=== PATIENT | female | born 1955 | race Caucasian/White ===

== ENCOUNTER 2016-08-31 10:41 | Emergency (ER) | payer MEDICARE, OTHER ==
--- NOTE | 2016-08-31 12:29 | ER Document Report ---
ED Fall - General Chief Complaint: Fall Injury Stated Complaint: FALL/LEFT LEG AND FOOT PAIN Time Seen by Provider: 08/31/16 11:39 Mode of Arrival: Wheelchair Information source: Patient Notes: 61-year-old female presents to ED for pain to her left foot ankle and leg. [place] cement stairs. [place] told [place] that it was just bruising and sent her home she has not been seen by a primary doctor and has not had any x-ray. Her leg ankle and foot are swollen and ecchymotic. TRAVEL OUTSIDE OF THE [place] IN LAST 30 DAYS: No - HPI Occurred: Other - 6 Days ago Where: Outdoors, Public place Context: Slipped - And fell downstairs Associated symptoms: None, Difficulty walking Location of injury/pain: Ankle, Foot Quality of pain: Achy, Dull, Throbbing Severity: Moderate Pain Level: 4 - Related data Allergies/Adverse Reactions: Penicillins Allergy (Severe, Verified 08/31/16 10:47) codeine [Codeine] Allergy (Intermediate, Verified 08/31/16 10:47) oxycodone [Oxycodone] Allergy (Intermediate, Verified 08/31/16 10:47) Urticaria Sulfa (Sulfonamide Antibiotics) Allergy (Intermediate, Verified 08/31/16 10:47) Past Medical History - General Information source: Patient - Social History Smoking Status: Current Every Day Smoker Cigarette use (# per day): Yes - She is reduced down to a pack and a half a day Chew tobacco use (# tins/day): No Smoking Education Provided: Yes - Less than 2 minutes Frequency of alcohol use: Occasional Drug Abuse: None Lives with: Alone Family History: Arthritis, DM, Hyperlipidemia, Hypertension, Malignancy Patient has suicidal ideation: No Patient has homicidal ideation: No - Past Medical History Cardiac Medical History: Reports: None Pulmonary Medical History: Reports: Hx Bronchitis - chronic Neurological Medical History: Reports: Hx Migraine Endocrine Medical History: Reports: Hx Hypothyroidism Renal/ Medical History: Reports: None Malignancy Medical History: Reports: Hx Cervical Cancer, Hx Ovarian Cancer, Hx Skin Cancer GI Medical History: Reports: Hx Cirrhosis - With portal hypertension and ascites , Hx Gastroesophageal Reflux Disease, Hx Colonoscopy, Hx Endoscopy Musculoskeltal Medical History: Reports Hx Arthritis, Reports Hx Musculoskeletal Deformity, Reports Hx Musculoskeletal Trauma Skin Medical History: Reports None Traumatic Medical History: Reports: Hx Fractures Infectious Medical History: Reports: None Past Surgical History: Reports: Hx Adenoidectomy, Hx Bowel Surgery, Hx Cholecystectomy, Hx Genitourinary Surgery, Hx Herniorrhaphy, Hx Hysterectomy, Hx Kidney (Renal Surgery) - biopsy, Hx Orthopedic Surgery - left knee surgery x2 , Hx Thyroid Surgery, Hx Tonsillectomy, Hx Umbilical Hernia - Immunizations Immunizations up to date: Yes Hx Diphtheria, Pertussis, Tetanus Vaccination: Yes Hx Pneumococcal Vaccination: 04/21/10 Review of Systems - Review of Systems Constitutional: No symptoms reported EENT: No symptoms reported Cardiovascular: No symptoms reported Respiratory: No symptoms reported Gastrointestinal: No symptoms reported Genitourinary: No symptoms reported Female Genitourinary: No symptoms reported Musculoskeletal: Leg swelling, Ankle swelling Skin: No symptoms reported Hematologic/Lymphatic: No symptoms reported Neurological/Psychological: No symptoms reported Physical Exam - Vital signs Vitals: Temp Pulse Resp BP Pulse Ox 98.2 F 65 16 125/59 L 98 08/31/16 10:47 08/31/16 10:47 08/31/16 10:47 08/31/16 10:47 08/31/16 10:47 Interpretation: Normal - General General appearance: Appears well, Alert - HEENT Head: Normocephalic, Atraumatic Eyes: Normal Pupils: PERRL - Respiratory Respiratory status: No respiratory distress Chest status: Nontender Breath sounds: Normal Chest palpation: Normal - Cardiovascular Rhythm: Regular Heart sounds: Normal auscultation Murmur: No - Abdominal Inspection: Normal Distension: No distension Bowel sounds: Normal Tenderness: Nontender Organomegaly: No organomegaly - Back Back: Normal, Nontender - Extremities General upper extremity: Normal inspection, Nontender, Normal color, Normal ROM , Normal temperature General lower extremity: Normal color, Normal temperature. No: Misael's sign Calf: Tender, Ecchymosis, Unable to bear weight. No: Normal, Nontender, Abrasion, Deformity, Instability, Laceration, Other Ankle: Tender, Ecchymosis, Limited ROM. No: Normal, Nontender, Abrasion, Deformity, Edema, Instability, Laceration, Positive Whitt's test, Unable to bear weight, Other Foot: Tender, Edema, Ecchymosis. No: Normal, Nontender, Abrasion, Deformity, Instability, Laceration, Metatarsal compress. pain, Nail injury, Navicular tenderness, No evidence of FB, Puncture wound, Unable to bear weight, Tender 5th metatarsal, Other - Neurological Neuro grossly intact: Yes Cognition: Normal Orientation: AAOx4 [place] Coma Scale Eye Opening: Spontaneous [place] Coma Scale Verbal: Oriented [place] Coma Scale Motor: Obeys Commands [place] Coma Scale Total: 15 Speech: Normal Motor strength normal: LUE, RUE, LLE, RLE Sensory: Normal - Psychological Associated symptoms: Normal affect, Normal mood - Skin Skin Temperature: Warm Skin Moisture: Dry Skin Color: Normal Course - Re-evaluation Re-evalutation: 08/31/16 13:40 Discussed x-rays with patient and written report given to patient to follow-up with orthopedics and her primary doctor. Nothing acute showing on the x-ray. Patient instructed to use ice elevation ibuprofen - Vital Signs Vital signs: Temp Pulse Resp BP Pulse Ox 98.2 F 62 18 146/58 H 100 08/31/16 13:53 08/31/16 13:53 08/31/16 13:53 08/31/16 13:53 08/31/16 13:53 - Diagnostic Test Radiology reviewed: Image reviewed, Reports reviewed Discharge - Discharge Clinical Impression: Pain of left lower leg, Pain in left foot Pain in left ankle Qualifiers: Chronicity: acute Qualified Code(s): M25.572 - Pain in left ankle and joints of left foot Condition: Stable Disposition: HOME, SELF-CARE Additional Instructions: CONTUSION: Your injury has resulted in a contusion -- a crushing of the deep tissues. No injury to important structures was detected during the physician's exam. Contusions vary in the amount of pain they cause, and in the length of time required for healing. Typically, the area will become bruised, and will remain painful to touch for two or three weeks. However, most patients are back to working and playing within a few days. After the initial period of rest and cold-packs, your symptoms (together with the doctor's recommendations) will determine how rapidly you can get back to full activity. Usually this means "do what feels okay, but don't do things that hurt." If re-examination was recommended, it's important to follow up as instructed. Call the doctor or return any time if pain increases, if swelling becomes severe, if you develop numbness or weakness in an injured extremity, or if any other alarming symptoms occur. ICE & ELEVATION: Apply ice packs frequently against the painful area. Many different schedules are recommended, such as "20 minutes on, 20 minutes off" or "one hour ice, two hours rest." If you need to work, you may need to go longer between ice treatments. You should plan to have the area ice packed AT LEAST one- fourth of the time. The ice should be applied over the wrap, tape, or splint, or over a layer of cloth -- not directly against the skin. Some ice bags have a built-in cloth and can be put directly on the skin. Your injured part should be elevated as much as possible over the next 48 hours. Try to keep the injury above the level of the heart. Avoid use of the injured area. Elevation and rest will decrease the swelling. USE OF [id number] IBUPROFEN: Ibuprofen (Advil, Nuprin, Medipren, Motrin IB) is a medication for fever and pain control. In addition, it has anti- inflammatory effects which may be beneficial, especially in the treatment of injuries. It's best to take ibuprofen with food. Persons with ulcer disease or allergy to aspirin should notify their physician of this before taking ibuprofen. Ibuprofen can be given every four to six hours, for a total of four doses daily. Age Pain or fever dose Antiinflammatory dose 6-8 yr 200 mg (1 tab) 200 mg (1 tab) 9-11 yr 200 mg (1 tab) 200-400 mg (1-2 tab) 11-14 yr 200-400 mg (1-2 tab) 400 mg (2 tab) 15-adult 400 mg (2 tab) 600 mg (3 tab) ORAL NARCOTIC MEDICATION: You have been given a prescription for pain control. This medication is a narcotic. It's best taken with food, as nausea can result if taken on an empty stomach. Don't operate machinery or drive within six hours of taking this medication. Do not combine this medicine with alcohol, or with any medication which can cause sedation (such as cold tablets or sleeping pills) unless you get permission from the physician. Narcotics tend to cause constipation. If possible, drink plenty of fluids and eat a diet high in fiber and fruits. Please be aware that prescription narcotics also have the potential for abuse. People become addicted to these medications because of the general sense of wellbeing that they induce. This feeling along with a significant reduction in tension, anxiety, and aggression provides a stimulating seductive quality to these drugs. Once your pain is under control, we encourage you to discard your unused narcotics. FOLLOW-UP CARE: If you have been referred to a physician for follow-up care, call the physician s office for an appointment as you were instructed or within the next two days. If you experience worsening or a significant change in your symptoms, notify the physician immediately or return to the Emergency Department at any time for re-evaluation. Prescriptions: Hydrocodone/Acetaminophen [King[place] 5-325 mg Tablet] 1 tab PO Q6HP PRN #14 tablet PRN Reason: Forms: Smoking Cessation Education Referrals: ARCHANA CEBALLOS MD [Primary Care Provider] - Follow up as needed
--- NOTE | 2016-08-31 13:03 | RADIOLOGY REPORT (SQ) ---
EXAM DESCRIPTION: FOOT LEFT COMPLETE COMPLETED DATE/TIME: 08/31/2016 12:37 pm REASON FOR STUDY: fall injury pain bruising and swelling COMPARISON: 06/25/2015. NUMBER OF VIEWS: Three views. TECHNIQUE: AP, lateral and oblique radiographic images acquired of the left foot. LIMITATIONS: None. FINDINGS: MINERALIZATION: Osteopenia. BONES: No acute fracture or dislocation. Small heel spur. No worrisome bone lesions. JOINTS: No effusions. SOFT TISSUES: No soft tissue swelling. No foreign body. OTHER: No other significant finding. IMPRESSION: OSTEOPENIA. NO ACUTE FINDINGS. TECHNICAL DOCUMENTATION: JOB ID: [id number] [employer]- All Rights Reserved
--- NOTE | 2016-08-31 13:04 | RADIOLOGY REPORT (SQ) ---
EXAM DESCRIPTION: TIBIA FIBULA LEFT COMPLETED DATE/TIME: 08/31/2016 12:37 pm REASON FOR STUDY: fall injury pain bruising and swelling COMPARISON: None. NUMBER OF VIEWS: Two views. TECHNIQUE: Two radiographic images acquired of the left tibia and fibula to include the knee and ank le in at least one projection. LIMITATIONS: None. FINDINGS: MINERALIZATION: Patchy demineralization. BONES: No acute fracture or dislocation. No worrisome bone lesions. SOFT TISSUES: No obvious swelling or foreign body. OTHER: No other significant finding. IMPRESSION: PATCHY DEMINERALIZATION. NO ACUTE FINDINGS. TECHNICAL DOCUMENTATION: JOB ID: [id number] [employer]- All Rights Reserved
[2016-08-31 13:56] VITALS: BP 146/58
== END 2016-08-31 13:50 | disposition home or self-care (01) ==
LOC: ER 10:41
DX: M79.605 Pain in left leg (principal); M79.672 Pain in left foot; W10.9XXA Fall (on) (from) unspecified stairs and steps, initial encounter; F17.210 Nicotine dependence, cigarettes, uncomplicated; Z88.0 Allergy status to penicillin; Z88.6 Allergy status to analgesic agent; Z88.2 Allergy status to sulfonamides; Z85.41 Personal history of malignant neoplasm of cervix uteri; Z85.43 Personal history of malignant neoplasm of ovary; Z85.828 Personal history of other malignant neoplasm of skin; Z90.49 Acquired absence of other specified parts of digestive tract; Z90.710 Acquired absence of both cervix and uterus
CPT/HCPCS: 99283

== ENCOUNTER 2016-10-06 12:09 | Emergency (ER) | payer MEDICARE, OTHER ==
--- NOTE | 2016-10-06 12:53 | ER Document Report ---
ED Medical Screen (RME) - General Chief Complaint: Leg Swelling Stated Complaint: FEET SWELLING Time Seen by Provider: 10/06/16 12:50 Mode of Arrival: Ambulatory Information source: Patient Notes: 61 yo female with alcoholic cirrhosis, portal hypertension, anemia, hypokalemia , thrombocytopenia, esophogeal varices, venous insufficiency c/o increased swelling to both legs. No shortness of breath. Hx t12 fx untreated. selfmedicating with alcohol for the pain. Lungs diminished in bases, no rales. TRAVEL OUTSIDE OF THE [place] IN LAST 30 DAYS: No - Related Data Allergies/Adverse Reactions: Penicillins Allergy (Severe, Verified 10/06/16 12:38) codeine [Codeine] Allergy (Intermediate, Verified 10/06/16 12:38) oxycodone [Oxycodone] Allergy (Intermediate, Verified 10/06/16 12:38) Urticaria Sulfa (Sulfonamide Antibiotics) Allergy (Intermediate, Verified 10/06/16 12:38) Past Medical History Pulmonary Medical History: Reports: Hx Bronchitis - chronic Neurological Medical History: Reports: Hx Migraine Endocrine Medical History: Reports: Hx Hypothyroidism Renal/ Medical History: Denies: Hx Peritoneal Dialysis Malignancy Medical History: Reports: Hx Cervical Cancer, Hx Ovarian Cancer, Hx Skin Cancer GI Medical History: Reports: Hx Cirrhosis - With portal hypertension and ascites , Hx Gastroesophageal Reflux Disease, Hx Colonoscopy, Hx Endoscopy Musculoskeltal Medical History: Reports Hx Arthritis, Reports Hx Musculoskeletal Deformity, Reports Hx Musculoskeletal Trauma Traumatic Medical History: Reports: Hx Fractures Past Surgical History: Reports: Hx Abdominal Surgery - hernia repair, Hx Adenoidectomy, Hx Bowel Surgery, Hx Cholecystectomy, Hx Genitourinary Surgery, Hx Herniorrhaphy, Hx Hysterectomy, Hx Kidney (Renal Surgery) - biopsy, Hx Orthopedic Surgery - left knee surgery x2, Hx Thyroid Surgery, Hx Tonsillectomy , Hx Umbilical Hernia - Immunizations Immunizations up to date: Yes Hx Diphtheria, Pertussis, Tetanus Vaccination: Yes Physical Exam - Vital signs Vitals: Temp Pulse Resp BP Pulse Ox 97.8 F 95 14 103/57 L 98 10/06/16 12:17 10/06/16 12:17 10/06/16 12:17 10/06/16 12:17 10/06/16 12:17 Course - Vital Signs Vital signs: Temp Pulse Resp BP Pulse Ox 97.8 F 95 14 103/57 L 98 10/06/16 12:17 10/06/16 12:17 10/06/16 12:17 10/06/16 12:17 10/06/16 12:17
[2016-10-06 13:25] LABS: ABSOLUTE BASOPHILS # (AUTO) 0.2 10^3/uL (0.0-0.2); ABSOLUTE EOSINOPHILS # (AUTO) 0.2 10^3/uL (0.0-0.6); ABSOLUTE LYMPHOCYTES (AUTO) 2.2 10^3/uL (0.5-4.7); ABSOLUTE MONOCYTES (AUTO) 1.4 10^3/uL (0.1-1.4); ABSOLUTE NEUT (AUTO) 4.6 10^3/uL (1.7-8.2); BASOPHILS % (AUTO) 2.2 % (0-2); EOSINOPHILS % (AUTO) 2.4 % (0-6); HEMATOCRIT 31.1 % (36.0-47.0); HEMOGLOBIN 10.3 g/dL (12.0-15.5); HGB HCT DIFFERENCE -0.2; LYMPHOCYTES % (AUTO) 25.9 % (13-45); MEAN CORPUSCULAR HEMOGLOBIN 30.6 pg (27.0-33.4); MEAN CORPUSCULAR HGB CONC 33.2 g/dL (32.0-36.0); MEAN CORPUSCULAR VOLUME 92 fl (80-97); MONOCYTES % (AUTO) 16.2 % (3-13); RED BLOOD COUNT 3.37 10^6/uL (3.72-5.28); RED CELL DISTRIBUTION WIDTH 15.7 % (11.5-14.0); SEGMENTED NEUTROPHILS % (AUTO) 53.3 % (42-78); WHITE BLOOD COUNT 8.6 10^3/uL (4.0-10.5)
[2016-10-06 13:31] LABS: APPEARANCE,URINE CLEAR; BILIRUBIN,URINE NEGATIVE (NEGATIVE); GLUCOSE, URINE NEGATIVE (NEGATIVE); KETONES,URINE NEGATIVE (NEGATIVE); LEUKOCYTE ESTERASE,URINE NEGATIVE (NEGATIVE); NITRITE,URINE NEGATIVE (NEGATIVE); PROTEIN,URINE NEGATIVE (NEGATIVE); URINE SPECIFIC GRAVITY 1.003; UROBILINOGEN,URINE NEGATIVE mg/dL (<2.0)
[2016-10-06 13:38] LABS: ALANINE AMINOTRANSFERASE 37 U/L (9-52); ALBUMIN 3.5 g/dL (3.5-5.0); ALCOHOL 172 mg/dL (NONE DETECTED); ALKALINE PHOSPHATASE 199 U/L (38-126); ANION GAP 18 (5-19); ASPARTATE AMINO TRANSFERASE 52 U/L (14-36); BILIRUBIN,DIRECT 0.5 mg/dL (0.0-0.4); BILIRUBIN,TOTAL 1.1 mg/dL (0.2-1.3); BLOOD UREA NITROGEN 8 mg/dL (7-20); CALCIUM 8.8 mg/dL (8.4-10.2); CARBON DIOXIDE 21 mmol/L (22-30); CHLORIDE 108 mmol/L (98-107); CREATININE RESULT 0.75 mg/dL (0.52-1.25); GLUCOSE 78 mg/dL (75-110); POTASSIUM 3.6 mmol/L (3.6-5.0); SODIUM 147.2 mmol/L (137-145); TOTAL PROTEIN 7.7 g/dL (6.3-8.2)
[2016-10-06 13:47] LABS: URINE BARBITURATES SCREEN NEGATIVE; URINE METHADONE SCREEN NEGATIVE; URINE OPIATES LOW NEGATIVE; URINE PHENCYCLIDINE SCREEN NEGATIVE
--- NOTE | 2016-10-06 14:23 | ER Document Report ---
ED Extremity Problem, Lower - General Chief Complaint: Leg Swelling Stated Complaint: FEET SWELLING Time Seen by Provider: 10/06/16 12:50 Mode of Arrival: Ambulatory Information source: Patient TRAVEL OUTSIDE OF THE [place] IN LAST 30 DAYS: No - HPI Notes: 61-year-old female with history of alcohol abuse, cirrhosis, portal tension, recent T12 fracture and insufficiency presents for evaluation of lower extremity edema. She states "I am tired of my legs being swollen and I would like to see them get fixed". She states they really have not improved since she was seen at [facility] a few days ago where she was admitted. She shows me paperwork showing this as well as the above diagnoses. She did have bilateral venous ultrasounds which were negative. Denies any shortness of breath. She does complain of continued back pain. Reviewing her list I do not see any current pain medications or diuretics. She was noted to have hypokalemia there. As well she does have a history of hypothyroidism. She denies any knee pain otherwise. No new cough or cold symptoms. No fever. Is followed by [facility]. - Related Data Allergies/Adverse Reactions: Penicillins Allergy (Severe, Verified 10/06/16 13:45) codeine [Codeine] Allergy (Intermediate, Verified 10/06/16 13:45) oxycodone [Oxycodone] Allergy (Intermediate, Verified 10/06/16 13:45) Urticaria Sulfa (Sulfonamide Antibiotics) Allergy (Intermediate, Verified 10/06/16 13:45) Past Medical History - General Information source: Patient - Social History Smoking Status: Current Every Day Smoker Chew tobacco use (# tins/day): No Smoking Education Provided: Yes Frequency of alcohol use: Heavy Drug Abuse: None Family History: Arthritis, DM, Hyperlipidemia, Hypertension, Malignancy Patient has suicidal ideation: No Patient has homicidal ideation: No Pulmonary Medical History: Reports: Hx Bronchitis - chronic Neurological Medical History: Reports: Hx Migraine Endocrine Medical History: Reports: Hx Hypothyroidism Renal/ Medical History: Denies: Hx Peritoneal Dialysis Malignancy Medical History: Reports: Hx Cervical Cancer, Hx Ovarian Cancer, Hx Skin Cancer GI Medical History: Reports: Hx Cirrhosis - With portal hypertension and ascites , Hx Gastroesophageal Reflux Disease, Hx Colonoscopy, Hx Endoscopy Musculoskeltal Medical History: Reports Hx Arthritis, Reports Hx Musculoskeletal Deformity, Reports Hx Musculoskeletal Trauma Traumatic Medical History: Reports: Hx Fractures Past Surgical History: Reports: Hx Abdominal Surgery - hernia repair, Hx Adenoidectomy, Hx Bowel Surgery, Hx Cholecystectomy, Hx Genitourinary Surgery, Hx Herniorrhaphy, Hx Hysterectomy, Hx Kidney (Renal Surgery) - biopsy, Hx Orthopedic Surgery - left knee surgery x2, Hx Thyroid Surgery, Hx Tonsillectomy , Hx Umbilical Hernia - Immunizations Immunizations up to date: Yes Hx Diphtheria, Pertussis, Tetanus Vaccination: Yes Hx Pneumococcal Vaccination: 04/21/10 Review of Systems - Review of Systems -: Yes All other systems reviewed and negative Physical Exam - Vital signs Vitals: Temp Pulse Resp BP Pulse Ox 97.8 F 95 14 103/57 L 98 10/06/16 12:10/06/16 12:10/06/16 12:10/06/16 12:10/06/16 12:17 Interpretation: Normal, Hypotensive - Notes Notes: GENERAL: VS as per nursing doc. unkempt, awakens easily from sleep. No acute distress. HEAD: Atraumatic, normocephalic. EYES: Pupils equal round and reactive to light, extraocular movements intact, sclera anicteric, right conjunctival injection, no discharge noted ENT: Moist mucous membranes. Extremely poor dentition NECK: Supple without lymphadenopathy. LUNGS: Breath sounds coarse bilaterally without rales HEART: Regular rate and rhythm without murmurs. ABDOMEN: Soft, non-tender, slight distention BACK: No CVA tenderness. EXTREMITIES: 3-4+ edema of the lower extremities bilaterally with pitting above the knees. No open wounds NEUROLOGICAL: Cranial nerves grossly intact. Normal sensory and motor exams. PSYCH: Suicidal homicidal ideation noted, no delusions. Patient does appear somewhat depressed talking about the of her . SKIN: Warm, dry, normal turgor, angiectasia is noted including over abdomen. Chronic venous stasis abnormalities of the lower extremities but no isolated cellulitis. Course - Re-evaluation Re-evalutation: 10/06/16 14:27 Reviewing records and by exam, current labs, patient clearly has alcoholic cirrhosis. She had negative Dopplers done. Her history and exam seem consistent with a compression fracture. I will place her on a small amount of tramadol to see if she can get some relief as she is currently drinking because of the pain. She understands she cannot drink and use the medication at the same time. As her potassium had been low and is on the lower limits of normal I will put her on small dose of spironolactone. She understands this could cause decreased blood pressure and is aware of the risks. - Vital Signs Vital signs: Temp Pulse Resp BP Pulse Ox 97.8 F 95 14 103/57 L 98 10/06/16 12:17 10/06/16 12:17 10/06/16 12:17 10/06/16 12:17 10/06/16 12:17 - Laboratory Result Diagrams: 10/06/16 13:00 10/06/16 13:00 Laboratory results interpreted by me: 10/06/16 10/06/16 13:00 13:00 RBC 3.37 L Hgb 10.3 L Hct 31.1 L RDW 15.7 H Monocytes % 16.2 H Basophils % 2.2 H Sodium 147.2 H Chloride 108 H Carbon Dioxide 21 L Direct Bilirubin 0.5 H AST 52 H Alkaline Phosphatase 199 H Discharge - Discharge Clinical Impression: Cirrhosis, Compression fracture, Edema, peripheral Acute alcohol intoxication Qualifiers: Complication of substance-induced condition: uncomplicated Qualified Code(s): F10.120 - Alcohol abuse with intoxication, uncomplicated Condition: Fair Disposition: HOME, SELF-CARE Additional Instructions: Please return for worsening or concern. Elevate your legs. Stop the spironolactone if you are getting dizzy. Please contact your primary care physician for follow-up this week. Prescriptions: Spironolactone 25 mg PO DAILY #7 tablet
[2016-10-06 14:52] VITALS: BP 100/56
--- NOTE | 2016-10-06 14:52 | RADIOLOGY REPORT (SQ) ---
EXAM DESCRIPTION: CHEST PA/LAT COMPLETED DATE/TIME: 10/06/2016 2:11 pm REASON FOR STUDY: hx t 12 fx pain COMPARISON: Chest CT scan dated December 2015 and chest x-ray dated February 2015 EXAM PARAMETERS: NUMBER OF VIEWS: two views TECHNIQUE: Digital Frontal and Lateral radiographic views of the chest acquired. RADIATION DOSE: NA LIMITATIONS: none FINDINGS: LUNGS AND PLEURA: No opacities, masses or pneumothorax. No pleural effusion. MEDIASTINUM AND HILAR STRUCTURES: No masses or contour abnormalities. HEART AND VASCULAR STRUCTURES: Heart normal size. No evidence for failure. BONES: There is increased kyphotic angulation at the thoracolumbar junction with apparent compression fractures which were not apparent on the previous CT scan. HARDWARE: None in the chest. OTHER: No other significant finding. IMPRESSION: No acute consolidations or pleural effusions are identified. Other findings as noted ab mathias TECHNICAL DOCUMENTATION: JOB ID: [id number] [employer]- All Rights Reserved
--- NOTE | 2016-10-06 14:55 | RADIOLOGY REPORT (SQ) ---
EXAM DESCRIPTION: T SPINE AP/LAT COMPLETED DATE/TIME: 10/06/2016 2:11 pm REASON FOR STUDY: hx t 12 fx pain COMPARISON: Chest CT scan dated December 2015 NUMBER OF VIEWS: Two views. TECHNIQUE: AP and lateral radiographic images acquired of the thoracic spine. LIMITATIONS: None. FINDINGS: MINERALIZATION: Normal. ALIGNMENT: There is increased kyphotic angulation at the thoracolumbar junction. A mild thoracolumba r scoliosis is identified convexed to the right superiorly into the left inferiorly. VERTEBRAE: The thoracolumbar junction is not well visualize but there appears to be almost complete c ompression of the T12 vertebra and compression of the superior endplate of the L1 vertebra. There is mild compression of the superior endplate of the L1 vertebra on the previous CT scan but no compress ion of the T12 vertebra. Clinical correlation is recommended. DISCS: No significant loss of height or significant narrowing. No large osteophytes. HARDWARE: None in the spine. MEDIASTINUM AND SOFT TISSUES: Normal heart size and aortic contour. No soft tissue abnormality. VISUALIZED LUNG PRASAD: Clear. OTHER: No other significant finding. IMPRESSION: Increase kyphotic angulation at the thoracolumbar junction as noted above. There appear s to be almost complete compression of the T12 vertebra and compression of the superior endplate of t he L1 vertebra is noted above. Other findings as noted above. TECHNICAL DOCUMENTATION: JOB ID: [id number] [employer]- All Rights Reserved
== END 2016-10-06 14:51 | disposition home or self-care (01) ==
LOC: ER 12:09
DX: M48.54XA Collapsed vertebra, not elsewhere classified, thoracic region, initial encounter for fracture (principal); R60.0 Localized edema; K70.30 Alcoholic cirrhosis of liver without ascites; M79.89 Other specified soft tissue disorders; K76.6 Portal hypertension; F17.200 Nicotine dependence, unspecified, uncomplicated; F10.120 Alcohol abuse with intoxication, uncomplicated
CPT/HCPCS: 36415; 71020; 72070; 80053; 80307; 81001; 85025; 99283

== ENCOUNTER 2016-10-28 07:37 | Emergency (ER) | payer MEDICARE, OTHER ==
--- NOTE | 2016-10-28 07:50 | ER Document Report ---
ED General - General Stated Complaint: LEG PAIN Time Seen by Provider: 10/28/16 07:44 Mode of Arrival: Medic Information source: Patient Notes: 61 yr old female hx of edema in the past presents iwth complaints of bilateral lower extremity edema over the past 4 days with sharp pains in her feet. Pt dneies hx of chf or diabetes. ntoes she was on lasix before for edema. denies any sob, chest pain TRAVEL OUTSIDE OF THE [place] IN LAST 30 DAYS: No - HPI Onset: Last week Onset/Duration: Persistent Quality of pain: Sharp Severity: Mild Pain Level: 1 Associated symptoms: Leg swelling Exacerbated by: Denies Relieved by: Denies Similar symptoms previously: Yes Recently seen / treated by doctor: Yes - Related Data Allergies/Adverse Reactions: Penicillins Allergy (Severe, Verified 10/06/16 13:45) codeine [Codeine] Allergy (Intermediate, Verified 10/06/16 13:45) oxycodone [Oxycodone] Allergy (Intermediate, Verified 10/06/16 13:45) Urticaria Sulfa (Sulfonamide Antibiotics) Allergy (Intermediate, Verified 10/06/16 13:45) Home Medications: Current Home Medications Alendronate Sodium [Fosamax 10 mg Tablet] 10/28/16 [History] Brimonidine Tartrate [Alphagan 0.2% Oph Soln 5 ml] 10/28/16 [History] Calcium Carbonate/Vitamin D3 [Calcium 500 + Vit D Caplet] 10/28/16 [History] Gabapentin 10/28/16 [History] Levothyroxine Sodium [Synthroid 0.075 mg Tablet] 10/28/16 [History] Past Medical History - Social History Smoking Status: Never Smoker Cigarette use (# per day): No Chew tobacco use (# tins/day): No Smoking Education Provided: No Family History: Arthritis, DM, Hyperlipidemia, Hypertension, Malignancy Pulmonary Medical History: Reports: Hx Bronchitis - chronic Neurological Medical History: Reports: Hx Migraine Endocrine Medical History: Reports: Hx Hypothyroidism Renal/ Medical History: Denies: Hx Peritoneal Dialysis Malignancy Medical History: Reports: Hx Cervical Cancer, Hx Ovarian Cancer, Hx Skin Cancer GI Medical History: Reports: Hx Cirrhosis - With portal hypertension and ascites , Hx Gastroesophageal Reflux Disease, Hx Colonoscopy, Hx Endoscopy Musculoskeltal Medical History: Reports Hx Arthritis, Reports Hx Musculoskeletal Deformity, Reports Hx Musculoskeletal Trauma Traumatic Medical History: Reports: Hx Fractures Past Surgical History: Reports: Hx Abdominal Surgery - hernia repair, Hx Adenoidectomy, Hx Bowel Surgery, Hx Cholecystectomy, Hx Genitourinary Surgery, Hx Herniorrhaphy, Hx Hysterectomy, Hx Kidney (Renal Surgery) - biopsy, Hx Orthopedic Surgery - left knee surgery x2, Hx Thyroid Surgery, Hx Tonsillectomy , Hx Umbilical Hernia - Immunizations Immunizations up to date: Yes Hx Diphtheria, Pertussis, Tetanus Vaccination: Yes Hx Pneumococcal Vaccination: 04/21/10 Review of Systems - Review of Systems Notes: REVIEW OF SYSTEMS: CONSTITUTIONAL : Denies fever, chills, or sweats. Denies recent illness. EENT: Denies eye, ear, throat, or mouth pain or symptoms. Denies nasal or sinus congestion or discharge. Denies throat, tongue, or mouth swelling or difficulty swallowing. CARDIOVASCULAR: Denies chest pain. Denies palpitations or racing or irregular heart beat. Denies ankle edema. RESPIRATORY: Denies cough, cold, or chest congestion. Denies shortness of breath, difficulty breathing, or wheezing. GASTROINTESTINAL: Denies abdominal pain or distention. Denies nausea, vomiting , or diarrhea. Denies blood in vomitus, stools, or per rectum. Denies black, tarry stools. Denies constipation. GENITOURINARY: Denies difficulty urinating, painful urination, burning, frequency, blood in urine, or discharge. FEMALE GENITOURINARY: Denies vaginal bleeding, heavy or abnormal periods, irregular periods. Denies vaginal discharge or odor. MUSCULOSKELETAL: Admits to bilateral lower extremity edema SKIN: Denies rash, lesions or sores. HEMATOLOGIC : Denies easy bruising or bleeding. LYMPHATIC: Denies swollen, enlarged glands. NEUROLOGICAL: Denies confusion or altered mental status. Denies passing out or loss of consciousness. Denies dizziness or lightheadedness. Denies headache. Denies weakness or paralysis or loss of use of either side. Denies problems with gait or speech. Denies sensory loss, numbness, or tingling. Denies seizures. PSYCHIATRIC: Denies anxiety or stress. Denies depression, suicidal ideation, or homicidal ideation. ALL OTHER SYSTEMS REVIEWED AND NEGATIVE. PHYSICAL EXAMINATION: GENERAL: Well-appearing, well-nourished and in no acute distress. HEAD: Atraumatic, normocephalic. EYES: Pupils equal round and reactive to light, extraocular movements intact, conjunctiva are normal. ENT: Nares patent, oropharynx clear without exudates. Moist mucous membranes. NECK: Normal range of motion, supple without lymphadenopathy LUNGS: Breath sounds clear to auscultation bilaterally and equal. No wheezes rales or rhonchi. HEART: Regular rate and rhythm without murmurs ABDOMEN: Soft, nontender, nondistended abdomen. No guarding, no rebound. No masses appreciated. Female : deferred Musculoskeletal: +3 pitting edema bilateral lower extremity NEUROLOGICAL: Cranial nerves grossly intact. Normal speech, normal gait. Normal sensory, motor exams PSYCH: Normal mood, normal affect. SKIN: Warm, Dry, normal turgor, no rashes or lesions noted. Dictation was performed using [employer] voice recognition software Physical Exam - Vital signs Vitals: Temp Pulse Resp BP Pulse Ox 98.7 F 92 14 136/64 H 100 10/28/16 07:47 10/28/16 07:47 10/28/16 07:47 10/28/16 07:47 10/28/16 07:47 Course - Re-evaluation Re-evalutation: 10/28/16 08:57 Labwork pending, patient is in no significant distress satting 99% at this time. 10/28/16 09:28 Patient's x-ray lab work noted no significant abnormality, there is no signs of congestive heart failure at this time, patient will be given Lasix for next 3 days to decrease the edema but it appears to be secondary to venous insufficiency Patient does not appear to have any risk factors for DVT or PE After performing a Medical Screening Examination, I estimate there is LOW risk for ACUTE CORONARY SYNDROME, RESPIRATORY FAILURE, SEPSIS OR MENINGITIS, thus I consider the discharge disposition reasonable. I have reevaluated this patient multiple times and no significant life threatening changes are noted. The patient and I have discussed the diagnosis and risks, and we agree with discharging home with close follow-up. We also discussed returning to the Emergency Department immediately if new or worsening symptoms occur. We have discussed the symptoms which are most concerning (e.g., changing or worsening pain, trouble swallowing or breathing, neck stiffness, fever) that necessitate immediate return. 10/28/16 09:29 - Vital Signs Vital signs: Temp Pulse Resp BP Pulse Ox 98.7 F 92 16 137/72 H 99 08/10/17 07:56 10/28/16 07:56 10/28/16 09:07 10/28/16 09:07 10/28/16 09:07 - Laboratory Result Diagrams: 10/28/16 09:05 10/28/16 08:22 Laboratory results interpreted by me: 10/28/16 10/28/16 08:22 09:05 RBC 3.50 L Hgb 10.0 L Hct 30.3 L RDW 17.2 H Plt Count 146 L Monocytes % 13.7 H Direct Bilirubin 0.5 H AST 40 H Alkaline Phosphatase 233 H - Diagnostic Test Radiology reviewed: Image reviewed, Reports reviewed - EKG Interpretation by Me EKG shows normal: Sinus rhythm, [place], Intervals, QRS Complexes Discharge - Discharge Clinical Impression: Peripheral edema, Venous insufficiency Condition: Stable Disposition: HOME, SELF-CARE Instructions: Edema, Peripheral ([facility]) Prescriptions: Furosemide [Lasix 20 mg Tablet] 40 mg PO QAM 3 Days Referrals: ARCHANA CEBALLOS MD [Primary Care Provider] - Follow up tomorrow
[2016-10-28 08:55] LABS: ALANINE AMINOTRANSFERASE 24 U/L (9-52); ALBUMIN 3.5 g/dL (3.5-5.0); ALKALINE PHOSPHATASE 233 U/L (38-126); ANION GAP 11 (5-19); ASPARTATE AMINO TRANSFERASE 40 U/L (14-36); BILIRUBIN,DIRECT 0.5 mg/dL (0.0-0.4); BILIRUBIN,TOTAL 1.2 mg/dL (0.2-1.3); BLOOD UREA NITROGEN 11 mg/dL (7-20); CALCIUM 8.7 mg/dL (8.4-10.2); CARBON DIOXIDE 23 mmol/L (22-30); CHLORIDE 107 mmol/L (98-107); CREATININE RESULT 0.74 mg/dL (0.52-1.25); GLUCOSE 90 mg/dL (75-110); POTASSIUM 3.7 mmol/L (3.6-5.0); SODIUM 141.4 mmol/L (137-145); TOTAL PROTEIN 7.9 g/dL (6.3-8.2)
--- NOTE | 2016-10-28 09:21 | RADIOLOGY REPORT (SQ) ---
EXAM DESCRIPTION: CHEST PA/LAT COMPLETED DATE/TIME: 10/28/2016 8:52 am REASON FOR STUDY: peripheral edema COMPARISON: 10/06/2016, 03/15/2015 EXAM PARAMETERS: NUMBER OF VIEWS: Two-view chest 10/06/2016, 03/15/2015 CT abdomen pelvis 01/02/2015 TECHNIQUE: Digital Frontal and Lateral radiographic views of the chest acquired. RADIATION DOSE: NA LIMITATIONS: Portable technique, low lung volumes FINDINGS: LUNGS AND PLEURA: Artifact of the frontal film for the patient's abdomen, and right arm. There is no focal infiltrate on the lateral view. No pleural effusions. No pneumothorax. MEDIASTINUM AND HILAR STRUCTURES: No masses or contour abnormalities. HEART AND VASCULAR STRUCTURES: Heart normal size. No evidence for failure. BONES: Chronic appearing L1 vertebra plana deformity HARDWARE: None in the chest. OTHER: No other significant finding. IMPRESSION: No acute findings. TECHNICAL DOCUMENTATION: JOB ID: [id number] [employer]- All Rights Reserved
[2016-10-28 09:22] LABS: ABSOLUTE BASOPHILS # (AUTO) 0.1 10^3/uL (0.0-0.2); ABSOLUTE EOSINOPHILS # (AUTO) 0.3 10^3/uL (0.0-0.6); ABSOLUTE LYMPHOCYTES (AUTO) 1.5 10^3/uL (0.5-4.7); ABSOLUTE MONOCYTES (AUTO) 0.8 10^3/uL (0.1-1.4); ABSOLUTE NEUT (AUTO) 3.2 10^3/uL (1.7-8.2); BASOPHILS % (AUTO) 1.3 % (0-2); EOSINOPHILS % (AUTO) 4.7 % (0-6); HEMATOCRIT 30.3 % (36.0-47.0); HGB HCT DIFFERENCE -0.3; LYMPHOCYTES % (AUTO) 25.9 % (13-45); MEAN CORPUSCULAR HEMOGLOBIN 28.7 pg (27.0-33.4); MEAN CORPUSCULAR HGB CONC 33.1 g/dL (32.0-36.0); MONOCYTES % (AUTO) 13.7 % (3-13); RED CELL DISTRIBUTION WIDTH 17.2 % (11.5-14.0); SEGMENTED NEUTROPHILS % (AUTO) 54.4 % (42-78)
[2016-10-28 09:25] LABS: MEAN CORPUSCULAR VOLUME 87 fl (80-97)
[2016-10-28 10:23] VITALS: BP 146/63
--- NOTE | 2016-10-28 13:21 | EKG REPORT ---
SEVERITY:- BORDERLINE ECG - SINUS RHYTHM BORDERLINE LEFT AXIS DEVIATION BORDERLINE PROLONGED QT INTERVAL : Confirmed by: Bailee Sena 28-Oct-2016 13:21:00
== END 2016-10-28 10:40 | disposition home or self-care (01) ==
LOC: ER 07:37
DX: I87.2 Venous insufficiency (chronic) (peripheral) (principal); R60.0 Localized edema; Z88.0 Allergy status to penicillin; Z88.5 Allergy status to narcotic agent; Z88.2 Allergy status to sulfonamides; Z85.41 Personal history of malignant neoplasm of cervix uteri; Z85.43 Personal history of malignant neoplasm of ovary
CPT/HCPCS: 36415; 71020; 80053; 83880; 85025; 93005; 93010; 99284

== ENCOUNTER 2016-12-21 12:30 | Emergency (ER) | payer MEDICARE, OTHER ==
[2016-12-21 12:50] VITALS: BP 143/80
[2016-12-21] MEDS ORDERED: LIDOCAINE 5% (700 MG) TRANSDERMAL ADH..PATCH TP ONE ×2 (12:55→12:57)
--- NOTE | 2016-12-21 12:57 | ER Document Report ---
ED General - General Chief Complaint: Back Pain Stated Complaint: BACK PAIN Time Seen by Provider: 12/21/16 12:50 TRAVEL OUTSIDE OF THE [place] IN LAST 30 DAYS: No - HPI Patient complains to provider of: Back pain EtOH Notes: Patient presents today for chronic back pain and alcohol abuse. Patient according EMS and called emergency responders multiple times to her house today for nefarious reasons upon the last call patient was complaining of back pain is worse transported to the ER for further evaluation. Patient admits to drinking alcohol today. Patient looks to be acutely intoxicated however is ANO 3. Patient complains of back pain states goes down both legs has difficulty time walking. Patient also states pain is in her buttocks patient demonstrates this by lifting up her legs and showing me her buttocks while she is lying on her back. Denies any trauma. - Related Data Allergies/Adverse Reactions: Penicillins Allergy (Severe, Verified 12/21/16 12:51) codeine [Codeine] Allergy (Intermediate, Verified 12/21/16 12:51) oxycodone [Oxycodone] Allergy (Intermediate, Verified 12/21/16 12:51) Urticaria Sulfa (Sulfonamide Antibiotics) Allergy (Intermediate, Verified 12/21/16 12:51) Past Medical History - Social History Smoking Status: Unknown if Ever Smoked Family History: Arthritis, DM, Hyperlipidemia, Hypertension, Malignancy Patient has suicidal ideation: No Patient has homicidal ideation: No Pulmonary Medical History: Reports: Hx Bronchitis - chronic Neurological Medical History: Reports: Hx Migraine Endocrine Medical History: Reports: Hx Hypothyroidism Renal/ Medical History: Denies: Hx Peritoneal Dialysis Malignancy Medical History: Reports: Hx Cervical Cancer, Hx Ovarian Cancer, Hx Skin Cancer GI Medical History: Reports: Hx Cirrhosis - With portal hypertension and ascites , Hx Gastroesophageal Reflux Disease, Hx Colonoscopy, Hx Endoscopy Musculoskeltal Medical History: Reports Hx Arthritis, Reports Hx Musculoskeletal Deformity, Reports Hx Musculoskeletal Trauma Traumatic Medical History: Reports: Hx Fractures Past Surgical History: Reports: Hx Abdominal Surgery - hernia repair, Hx Adenoidectomy, Hx Bowel Surgery, Hx Cholecystectomy, Hx Genitourinary Surgery, Hx Herniorrhaphy, Hx Hysterectomy, Hx Kidney (Renal Surgery) - biopsy, Hx Orthopedic Surgery - left knee surgery x2, Hx Thyroid Surgery, Hx Tonsillectomy , Hx Umbilical Hernia - Immunizations Immunizations up to date: Yes Hx Diphtheria, Pertussis, Tetanus Vaccination: Yes Hx Pneumococcal Vaccination: 04/21/10 Review of Systems - Review of Systems Constitutional: No symptoms reported EENT: No symptoms reported Cardiovascular: No symptoms reported Respiratory: No symptoms reported Gastrointestinal: No symptoms reported Genitourinary: No symptoms reported Female Genitourinary: No symptoms reported Musculoskeletal: Back pain Skin: No symptoms reported Hematologic/Lymphatic: No symptoms reported Neurological/Psychological: No symptoms reported Physical Exam - Vital signs Vitals: Temp Pulse Resp BP Pulse Ox 98.1 F 84 18 143/80 H 97 12/21/16 12:30 12/21/16 12:30 12/21/16 12:30 12/21/16 12:30 12/21/16 12:30 Interpretation: Normal - General General appearance: Appears well, Alert - HEENT Head: Normocephalic, Atraumatic Eyes: Normal Pupils: PERRL - Respiratory Respiratory status: No respiratory distress Chest status: Nontender Breath sounds: Normal Chest palpation: Normal - Cardiovascular Rhythm: Regular Heart sounds: Normal auscultation Murmur: No - Abdominal Inspection: Normal Distension: No distension Bowel sounds: Normal Tenderness: Nontender Organomegaly: No organomegaly - Back Back: Normal, Nontender - Extremities General upper extremity: Normal inspection, Nontender, Normal color, Normal ROM , Normal temperature General lower extremity: Normal inspection, Nontender, Edema - 2+ edema, Normal color, Normal ROM, Normal temperature, Normal weight bearing. No: Misael's sign - Neurological Neuro grossly intact: Yes Cognition: Normal Orientation: AAOx4 Dana Coma Scale Eye Opening: Spontaneous Dana Coma Scale Verbal: Oriented Dana Coma Scale Motor: Obeys Commands Dana Coma Scale Total: 15 Speech: Normal Motor strength normal: LUE, RUE, LLE, RLE Sensory: Normal - Psychological Associated symptoms: Normal affect, Normal mood - Skin Skin Temperature: Warm Skin Moisture: Dry Skin Color: Normal Course - Re-evaluation Re-evalutation: 12/21/16 15:05 The patient presents with low back pain without signs of spinal cord compression , cauda equina syndrome, infection, aneurysm, or other serious etiology. The patient is neurologically intact. Given the extremely low risk of these diagnoses further testing and evaluation for these possibilities does not appear to be indicated at this time. The patient has been instructed to return if the symptoms worsen or change in any way. Patient was given a lidocaine patch. Patient requesting to be discharged from the ER. Patient moving all 4 extremities without difficulty this time no acute pathology seen patient will be discharged home patient was able to ambulate out of the ER to a taxicab. - Vital Signs Vital signs: Temp Pulse Resp BP Pulse Ox 98.1 F 84 18 143/80 H 97 12/21/16 12:30 12/21/16 12:30 12/21/16 12:30 12/21/16 12:30 12/21/16 12:30 Discharge - Discharge Clinical Impression: Acute alcohol intoxication Qualifiers: Complication of substance-induced condition: with unspecified complication Qualified Code(s): F10.929 - Alcohol use, unspecified with intoxication, unspecified Back pain Qualifiers: Back pain location: low back pain Chronicity: chronic Back pain laterality: unspecified Sciatica presence: unspecified whether sciatica present Qualified Code(s): M54.5 - Low back pain Condition: Good Disposition: HOME, SELF-CARE Instructions: Acute Alcohol Intoxication ([facility]), Ice Packs ([facility]), Low Back Pain ([facility]) Additional Instructions: Follow-up with your primary care physician. Return to ER symptoms worsen. Take medications as prescribed. Highly recommend stop drinking alcohol. Prescriptions: Ibuprofen [Motrin 600 Mg Tablet] 600 mg PO TID #7 tablet
== END 2016-12-21 13:20 | disposition home or self-care (01) ==
LOC: ER 12:30
DX: G89.29 Other chronic pain (principal); M54.5 Low back pain; F10.129 Alcohol abuse with intoxication, unspecified; R26.2 Difficulty in walking, not elsewhere classified; Z88.0 Allergy status to penicillin; Z88.5 Allergy status to narcotic agent; Z88.2 Allergy status to sulfonamides; Z85.43 Personal history of malignant neoplasm of ovary; Z85.41 Personal history of malignant neoplasm of cervix uteri; Z85.828 Personal history of other malignant neoplasm of skin
CPT/HCPCS: 99283